=== PATIENT | female | born 1955 | race Caucasian/White ===

== ENCOUNTER 2018-04-26 17:53 | Emergency (ER) | payer OTHER ==
--- NOTE | 2018-04-26 18:22 | EDPHY ---
HPI/HX/ROS/PE/MDM Narrative: CHIEF COMPLAINT: Chest pain, cough HISTORY OF PRESENT ILLNESS: This patient is a generally healthy 62 year old female who presents with left- sided chest pain and cough. Her chest discomfort is primarily over her left lateral chest wall and is worse with coughing, movements, lying on her left side. It radiates to her back when she is coughing. She had several URI's in February and March and has had some persistent mild left chest discomfort since that time. Two days ago while she and her were in [place] , she noted increased discomfort as described above. She denies any trauma. No SCUBA diving during her trip. She returned from her trip yesterday evening. No rash. No fever, chills, palpitations, vomiting, diarrhea, urinary complaints, headache, lightheadedness. The patient notes she has history of CP in the past with elevated troponin; subsequent RAHUL, cardiac cath, and CTA chest were all negative for acute cardiac processes. She took ASA 81mg for some time but had persistent tinnitus, so discontinued this. She does not take any HRT. She does not smoke or use illicit drugs. No personal or family history od clotting disorders. REVIEW OF SYSTEMS: A comprehensive 10 system review of systems is otherwise negative aside from elements mentioned in the history of present illness and medical decision making. PAST MEDICAL HISTORY: Generally healthy. History of elevated troponin of unknown etiology as described in HPI. SOCIAL HISTORY: Works as a nurse practitioner. . at bedside. VITAL SIGNS: Reviewed by me. BP 180/97 GENERAL: Well-developed, well-nourished, resting comfortably in no respiratory distress. HEENT: Atraumatic. Eyes: No icterus, no injection. Mouth: moist mucous membranes. No erythema or lesions. Neck: supple with no adenopathy. LUNGS: Clear to auscultation bilaterally, no wheezes, rhonchi or rales. No crepitus appreciated. Mild tenderness to palpation along lateral chest wall. CARDIAC: Regular rate and rhythm, no rubs, murmurs or gallops. ABDOMEN: Soft, nontender, nondistended, bowel sounds normal. BACK: No CVA tenderness. EXTREMITIES: No trauma. No edema. Range of motion is normal throughout. NEURO: Alert and oriented, grossly nonfocal. SKIN: Warm and dry, no rash. PSYCHIATRIC: Normal mentation, no agitation. Portions of this note were transcribed by a medical transcriber. I personally performed a history, physical exam, medical decision making, and confirmed accuracy of information the transcribed note. ED Course: This 62 y/o female presents with one week of left-sided lateral chest discomfort , worse over the past two days. Plan for EKG, chest x-ray, labs including CBC, chemistries, troponin, d-dimer. 18:13 12-LEAD EKG: Please see the full report in [facility]. My interpretation: Sinus rhythm Reviewed chest x-ray. Evidence of possible patchy infiltrate. Reassessed patient. Discussed imaging ad laboratory results. Plan to discharge home in good condition with prescription for azithromycin and prednisone. We will administer the first dose of each here in the ED. I offered pain medication such as indomethacin, but the patient declines. She will take acetaminophen and ibuprofen as needed. Follow up and return precautions discussed. The patient is comfortable with this plan. Suspect pleurisy and pneumonia. D dimer neg; no further workup for PE at this time. EKG NSR and troponing negative. MDM: After history and physical examination, the differential for chest pain was considered, including but not limited to, PTX, pleural effusion, myocardial ischemia, acute coronary syndrome, pulmonary embolus, chest wall pain, pleural inflammation and pulmonary infectious causes. - Data Points Imaging Results: CXR: Impression: Patchy right middle lobe consolidation, atelectasis versus infiltrate versus scar. Dictated By: Luke Lopez MD Imaging: I viewed and interpreted images myself Laboratory Results: Laboratory Results 04/26/18 18:20 04/26/18 18:20 Medications Given: Discontinued Medications Azithromycin (Zithromax) 500 mg PO EDNOW ONE PRN Reason: Protocol Stop: 04/26/18 19:31 Last Admin: 04/26/18 19:37 Dose: 500 mg Prednisone (Prednisone) 60 mg PO EDNOW ONE Stop: 04/26/18 19:32 Last Admin: 04/26/18 19:36 Dose: 60 mg Point of Care Test Results: Chemistry 04/26/18 18:22 POC Troponin I 0.00 ng/mL ng/mL (0.00-0.08) General Time Seen by Provider: 04/26/18 18:07 Initial Vital Signs: Initial Vital Signs Temperature (C) 37 C 04/26/18 17:59 Heart Rate 88 04/26/18 17:59 Respiratory Rate 18 04/26/18 17:59 Blood Pressure 160/90 H 04/26/18 17:59 O2 Sat (%) 96 04/26/18 17:59 O2 Delivery Mode Room Air Allergies/Adverse Reactions: Penicillins Allergy (Verified 04/26/18 17:58) Home Medications: Medication Instructions Recorded Azithromycin [Zithromax] 250 mg PO DAILY #4 tab 04/26/18 Fish Oil 1,000 mg Softgel 04/26/18 predniSONE [prednisone 10mg (RX)] 40 mg PO DAILY 3 Days tab 04/26/18 Departure - Departure Disposition: Home, Routine, Self-Care Clinical Impression: Pleurisy, Bronchitis Condition: Good Instructions: Pleurisy (ED), Acute Bronchitis (ED) Additional Instructions: You been given a prescription of azithromycin. Please begin taking this as directed. It is important to finish your entire course of antibiotics even if you are feeling better. You been given a prescription of prednisone. Please take this as directed for the next 3 days starting tomorrow. For pain, use Tylenol, or ibuprofen. Follow up with your primary care provider. Seek care urgently or follow up at the emergency department if you develop a fever, worsening symptoms despite the above treatment, shortness of breath, chest pain, vomiting, or other concerns. Referrals: SAPNA TAYLOR [Primary Care Provider] - As per Instructions Prescriptions: Azithromycin [Zithromax] 250 mg PO DAILY #4 tab predniSONE [prednisone 10mg (RX)] 40 mg PO DAILY 3 Days tab
[2018-04-26 18:30] LABS: PLATELET COUNT 220 10^3/uL (150-400)
[2018-04-26] MEDS ORDERED: AZITHROMYCIN 250 MG TAB PO ONE (19:30)
[2018-04-26] MEDS ORDERED: predniSONE 20 MG TAB PO ONE (19:31)
[2018-04-26 19:44] VITALS: BP 175/90
--- NOTE | 2018-04-27 00:57 | CPEKG ---
Test Reason : OPEN Blood Pressure : / mmHG Vent. Rate : 074 BPM Atrial Rate : 075 BPM P-R Int : 173 ms QRS Dur : 095 ms QT Int : 427 ms P-R-T Axes : 075 -04 039 degrees QTc Int : 474 ms Sinus rhythm Probable left atrial enlargement Confirmed by Holly Tellez ([id number]) on 04/27/2018 12:57:04 AM Referred By: Holly Tellez Confirmed By:Holly Tellez
== END 2018-04-26 19:43 | disposition home or self-care (01) ==
DX: R09.1 Pleurisy (principal); J20.9 Acute bronchitis, unspecified
CPT/HCPCS: 84484-ER; J7512